=== PATIENT | female | born 1990 | race Caucasian/White ===

== ENCOUNTER 2021-06-08 10:03 | Emergency (ER) | payer OTHER, SELFPAY ==
--- NOTE | 2021-06-08 10:15 | ED.ALLEREA ---
HPI - Allergic Reaction General Chief complaint: Allergic Reaction Stated complaint: ALLERGIC REACTION TO HAIR DYE Time Seen by Provider: 06/08/21 10:10 Source: patient and EMS Mode of arrival: EMS Limitations: no limitations History of Present Illness HPI narrative: 30-year-old female presenting to the ED via EMS after she was seen at an urgent care prior to arrival and given 25 mg of Benadryl and IM epi to the right thigh due to allergic reaction with facial swelling prior to arrival from hair dye that the patient use last night. She reports that she has use hair dye in the past although has never had a reaction although this hair dye was a different brand. She denies any dizziness, headaches, neck pain/stiffness, trouble swallowing or breathing, chest pain or shortness of breath, nausea/vomiting or abdominal pain or any other symptoms complaints or concerns at this time. MD complaint: allergic reaction and facial swelling Onset (ago): day(s) (Since last night) Exposure: other (Hair dye) Symptoms: itching and facial swelling Severity: severe Treatment prior to arrival: benadryl (25 mg) and epinephrine Previous Allergic Reaction History: none Related Data Previous Rx's Medication Instructions Recorded diphenhydramine HCl 25 mg tablet 50 mg PO Q6-8H PRN #14 tab 06/08/21 (Benadryl Allergy) epinephrine 0.3 mg/0.3 mL 0.3 mg (0.3 mL) IM Q20M PRN #2 ea 06/08/21 injection, auto-injector (EpiPen) famotidine 20 mg tablet (Pepcid) 20 mg PO BID #14 tab 06/08/21 prednisone 20 mg tablet 40 mg PO DAILY 5 Days #10 tab 06/08/21 Allergies Allergy/AdvReac Type Severity Reaction Status Date / Time hair dye Allergy Facial Uncoded 06/08/21 10:29 Swelling Review of Systems Review of Systems: Constitutional : No Fever, No Chills , no body aches, no recent illness Head/Face: + facial swelling, + facial redness ENT/Mouth : No oral/throat swelling, No Hoarseness, No Swallowing Difficulty Eyes: No Eye Pain, No Swelling, No Redness Cardiovascular : No Chest Pain, No SOB, No palpitations Respiratory : No Cough, No Sputum, No Wheezing, No Smoke Exposure, No Dyspnea Gastrointestinal : No Nausea, No Vomiting, No Diarrhea, No abdominal Pain Genitourinary : No Dysuria, No Urinary Frequency, No Hematuria Musculoskeletal : No joint pain, No Myalgias, No Joint Swelling Skin : No Skin Lesions, positive rash Neuro : No Weakness, No Numbness, No Headache, No dizziness, No tingling Psych : No Anxiety/Panic, No Depression Heme/Lymph: No Bruising, No Lymphadenopathy Endocrine : No Polyuria, No Polydipsia Denies changes in lotions or detergents. Denies new medications or any changes in medications. Denies drainage from rash. Denies any recent sick contacts or recent travel. She use new hair dye Yes all other systems are reviewed and are negative [facility] Past Medical History Attestation statement: The following information was validated with the patient. Social History Social History Patient Tobacco Use Status: Never used Tobacco Use of substances other than those prescribed or required for medical reasons: No Advance Directives: No Advance Directives Information Provided: No Physical Exam Vital Signs: Vital Signs: Last Vital Signs Temp 98.6 F 06/08/21 10:26 Pulse 84 06/08/21 10:26 Resp 18 06/08/21 10:26 BP 116/66 06/08/21 10:26 Pulse Ox 99 06/08/21 10:26 BMI result Body Mass Index 28.3 vital signs have been reviewed as normal and appeared to be correct. Blood pressure normal. Heart rate normal. Respiration rate normal. Temperature normal. Oxygen saturation normal. Appearance: Alert. Oriented X3. No acute distress. Head: Normal external exam. Normocephalic. Eyes: PERRLA. EOMI. Conjunctiva and sclera normal. Eyelids normal. Patient with swelling to bilateral periorbital aspect ENT: Pharynx normal. Uvula midline. Moist mucous membranes. No trismus noted. No drooling noted. No muffled voice noted. No angioedema noted to lips or tongue. Neck: Normal inspection. Neck supple. FROM. No adenopathy. No meningeal signs. CVS: Normal heart rate and rhythm. Heart sound normal. No murmurs noted. Pulses normal throughout. Respiratory: No respiratory distress. Painless inspiration. Breath sounds normal. No wheezes/rales/rhonchi noted. Chest nontender. No accessory muscle usage noted or decreased air movement noted. Abdomen: Soft and nontender. Nondistended. No guarding. No rigidity. Bowel sounds normal in all 4 quadrants. No distention noted. No organomegaly noted. No visible injury noted. Back: Full range of motion noted. Skin: Skin warm and dry. Normal skin color. Normal skin turgor. No rashes/lesions/lacerations noted. Extremities: Extremities exhibit normal range of motion. Extremities nontender. Neuro: Oriented X 3. No motor deficit. No sensory deficit. Reflexes normal. Normal steady gait. Course Course Course Narrative: IMP/Plan: Allergic rxn. Not anaphylaxis. Not sepsis/ infectious etiology. Patient well appearing in no acute distress, breathing easily without throat symptoms. Speaking full sentences, and handling secretions without difficulty. There is no obvious threat to airway. Lungs are CTA in all otoole. Swelling to bilateral periorbital/forehead otherwise no angioedema to lips or tongue. Uvula is midline. No drooling/Roro/stridor. Patient tolerating secretions well. No signs of airway compromise, anaphylaxis or anaphylactic shock. Not c/w SSSS/ TEN/ Eryth multiforme/ Stewart Johnsons. Given HPI and PE - Will watch and observe for 4 hours due to patient given Epi will also give 125 mg of Solu-Medrol and another 25 mg of IV Benadryl. If patient symptoms improved - will d/c with return precautions. Patient understands and agrees with plan MDM - Allergic Reaction Medical Records Attestation: I reviewed the patient's medical records. Critical Care Time Critical Care Time Critical Care Time: Yes Total Critical Care Time: 60 Attestation: I personally attest to this time spent taking care of the patient Discharge Plan Discharge Clinical Impression: Allergic reaction Patient Disposition: Home, Self-Care Instructions: General Allergic Reaction (ED), Allergy Testing (ED) Prescriptions: New diphenhydramine HCl [Benadryl Allergy] 25 mg tablet 50 mg PO Q6-8H PRN (Reason: allergic reaction) Qty: 14 RF: 0 famotidine [Pepcid] 20 mg tablet 20 mg PO BID Qty: 14 RF: 0 prednisone 20 mg tablet 40 mg PO DAILY 5 Days Qty: 10 RF: 0 epinephrine [EpiPen] 0.3 mg/0.3 mL auto-injector 0.3 mg IM Q20M PRN (Reason: anaphylaxis) Qty: 2 RF: 0 Referrals: ED Physician,Generic [Emergency Provider] - 2 days (your pcp) Stand Alone Forms: Work/School Release Print Language: Wallisian
[2021-06-08 10:26] VITALS: BP 100/70; BP 116/66; PULSE 84; PULSE 94; RESP 18; TEMP 37; O2SAT 100; O2SAT 99; BMI 28.3
[2021-06-08] MEDS: 0.9 % Sodium Chloride 1,000 ML 999 ML IVCONT (11:04)
[2021-06-08] MEDS: Famotidine/PF 20 MG/2 ML VIAL IVPUSH (11:05)
[2021-06-08] MEDS: methylPREDNISolone Sod Succ 125 MG/2 ML VIAL IVPUSH (11:05)
[2021-06-08] MEDS: diphenhydrAMINE HCL 50 MG/ML VIAL 25 MG IVPUSH (11:05)
--- NOTE | 2021-06-08 11:07 | PC.NURSE ---
IV start to right A, medicated as charted. No diff breathing or angioedema. Breathing equal and unlabored. Fluids infusing. LS clear
--- NOTE | 2021-06-08 13:13 | PC.NURSE ---
Facial swelling improving
== END 2021-06-08 13:59 | disposition home or self-care (01) ==
PROVIDERS: Emergency Provider Emergency Medicine
DX: T78.49XA Other allergy, initial encounter (principal); X58.XXXA Exposure to other specified factors, initial encounter
CPT/HCPCS: 96361; 96374; 96375; 99284; 99291; J1200; J2930

== ENCOUNTER 2022-01-09 12:01 | Outpatient (REF) | payer MEDICAID, SELFPAY ==
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
== END 2022-01-09 12:02 | disposition home or self-care (01) ==
LOC: HO.XRAY 12:01
PROVIDERS: Absent Provider Registered Nurse; PCP Emergency Medicine; Visit Provider Emergency Medicine
DX: M54.50 Low back pain, unspecified (principal)
CPT/HCPCS: 72100

== ENCOUNTER 2023-06-24 08:54 | Emergency (ER) | payer MEDICAID, SELFPAY ==
[2023-06-24 09:03] VITALS: BP 119/67; PULSE 84; RESP 18; TEMP 36.8; O2SAT 98; BMI 34.9
--- NOTE | 2023-06-24 09:36 | ED_ITS ---
HPI - General Adult General Chief complaint: General Medical Stated complaint: Chest pain Time Seen by Provider: 06/24/23 09:28 Source: patient Mode of arrival: ambulatory Limitations: no limitations History of Present Illness HPI narrative: 32 year old female with no significant pmhx presents to the ED today for evaluation of left breast pain x2 days. Pain has been intermittent, now occurring more frequently. Describes it as a burning sensation. Pain is localized to the left areola/ nipple. States she was unable to sleep last night due to the pain. Has been taking motrin at home without relief of pain. Last dose was at 0800 this morning. LMP 4 mo ago. States her periods are typically irregular as she has an IUD. Denies chance of . She is not currently breast feeding. Has never breast fed in the past. Has never had a breast exam performed by a physician/ OBGYN. Has never had a mammogram. Denies fever, chills, discharge from the nipple, overlying skin changes to the breast, palpable masses, enlarged lymph nodes. No history of breast cancer or known fibrocystic breast changes. Related Data Previous Rx's Medication Instructions Recorded diphenhydramine HCl 25 mg tablet 50 mg (2 x 25 mg) PO Q6-8H PRN 06/08/21 (Benadryl Allergy) allergic reaction #14 tabs epinephrine 0.3 mg/0.3 mL 0.3 mg (0.3 mL) IM Q20M PRN 06/08/21 injection, auto-injector (EpiPen) anaphylaxis #2 ea famotidine 20 mg tablet (Pepcid) 20 mg PO BID rash #14 tabs 06/08/21 prednisone 20 mg tablet 40 mg (2 x 20 mg) PO DAILY rash 5 06/08/21 days #10 tabs ketorolac 10 mg tablet 10 mg PO Q8H 5 days #15 tabs 06/24/23 Allergies Allergy/AdvReac Type Severity Reaction Status Date / Time hair dye Allergy Facial Uncoded 06/08/21 10:29 Swelling Review of Systems Review of Systems: Constitutional: No fever, chills, fatigue, night sweats, weight changes ENT/Mouth: No ear pain, hearing loss, nasal congestion, sinus pain, rhinorrhea, sore throat Eyes: No eye pain, swelling, redness, vision changes, discharge Cardio: No chest pain, palpitations, TOM, orthopnea, peripheral edema Pulm: No SOB, cough, sputum, wheezing, dyspnea, hemoptysis GI: No nausea, vomiting, hematemesis, abdominal pain, diarrhea, constipation, he matochezia, melena : No irregular bleeding, dysuria, frequency, urgency, hesitancy, hematuria, flank pain, +left breast pain/ burning MSK: No back pain, neck pain, joint pain, myalgias Skin: No lesions, rashes Neuro: No weakness, numbness, paresthesias, LOC, dizziness, headache All other systems reviewed and are negative. [facility] Past Medical History Attestation statement: The following information was validated with the patient. Source: old records reviewed and nursing notes reviewed Social History Social History Patient Tobacco Use Status: Never used Tobacco Advance Directives: No Advance Directives Information Provided: No Physical Exam ED Vital Signs: Vital Signs - 24 hr 06/24/23 09:03 Temperature 98.2 F Pulse Rate 84 Respiratory Rate 18 Blood Pressure 119/67 Pulse Oximetry 98 Oxygen Delivery Method Room Air BMI result Body Mass Index 34.9 vital signs stable, afebrile Const General: cooperative, healthy appearing, comfortable, no acute distress, alert and awake Orientation/consciousness: patient oriented x3 Limitations: no limitations HENMT Head: Yes normal to inspection Eyes General: appearance normal, both eyes and all related structures Neck Neck: Yes normal visual inspection and Yes no lymphadenopathy Chest Other: + bilateral breasts without overlying skin changes or visible masses. No LAD noted to bilateral axilla. No palpable masses or nodules. No palpable warmth or fluctuance. Mildly tender to palpation of the left areola. No expressible discharge from the nipple. Chest palpation & inspection: normal inspection of the chest Breast/axilla inspection: normal inspection of the breasts Breast/axilla palpation: normal palpation of the breasts Resp Effort & Inspection: normal respiratory effort Auscultation: clear to auscultation bilaterally Cardio Rate: regular rate Rhythm: regular rhythm Peripheral pulses: radial pulses present GI Inspection: Yes normal to inspection Palpation (GI): nontender Skin General skin exam: no rashes or lesions noted Neuro General: patient oriented x3, gait normal and moves all extremities Extrem General: Yes normal to inspection Course Course Course Narrative: 1141-- Urine negative > low suspicion for . On re-evaluation, patient reports improvement in pain with toradol. Discussed imaging/ treatment with patient. I do not feel as thought imaging/ ultrasound of the breast is warranted at this time as patient does not have fever, overlying skin changes, palpable mass, or discharge from the nipple. There is no concern for mastitis vs breast abscess. Used shared decision making with patient to determine disposition. Patient will be discharged home with toradol. Advised patient to apply warm compresses to breast. Will provide patient with referral to OBGYN for her to establish care. Patient has remained stable throughout ED visit today. Discussed strict return precautions. All questions answered at this time. P atient is agreeable with disposition and stable for discharge. Medications Administered Discontinued Medications Generic Name Dose Route Start Last Admin Trade Name Freq PRN Reason Stop Dose Admin Ketorolac Tromethamine 30 mg 06/24/23 10:15 06/24/23 11:09 Ketorolac Tromethamine 30 Mg/Ml Vial IM 06/24/23 10:16 30 mg ONCE ONE Administration Medical Decision Making Medical Decision Making [facility] Narrative: 32 year old female with no significant pmhx presents to the ED today for evaluation of left breast pain x2 days. Vital signs stable. Afebrile. Patient was nontoxic-appearing and in no acute distress. On exam, bilateral breasts without overlying skin changes or visible masses. No LAD noted to bilateral axilla. No palpable masses or nodules. No palpable warmth or fluctuance. Mildly tender to palpation of the left areola. No expressible discharge from the nipple. Clinical concern for , fibrocystic breast changes, menses, premenstrual syndrome. Unlikely breast abscess, mastitis, pagets disease of the breast, cellulitis, prolactinoma, breast cancer. Plan for pain control and re- evaluation. Differential Diagnosis Differential Diagnoses: The differential diagnosis associated with the presentation includes as above Admission/Observation not indicated Lab Data as above. Labs: Lab Results 06/24/23 Range/Units 10:23 Urine Test NEGATIVE (NEGATIVE) External Record Review External record reviewed: Inpatient record Tests considered The following testing was considered but not selected: I considered obtaining ultrasound of left breast however no palpable mass/fluctuance, overlying skin changes or nipple discharge. No concern for breast abscess. Prescription Management I considered prescription management with: Pain Medication Social Determinants Patient?s care significantly limited by Social Determinants of Health including: Other Social Determinant of Health Critical Care Time Critical Care Time Critical Care Time: No Discharge Plan Discharge Clinical Impression: Breast pain, left Patient Disposition: Home, Self-Care Instructions: Fibrocystic Breast Changes (ED) Additional Instructions: Toradol is an anti-inflammatory that has been sent to your pharmacy. You tolerated a dose of this in the emergency department today. Do not take this on an empty stomach. Do not take this with other NSAIDs such as ibuprofen as this may increase risk of GI bleeding. Please take this as needed for pain/discomfort. You may also take Tylenol at home as needed. Apply warm compresses to the breast to help with discomfort. You were also provided with a referral to a [facility]. You may call them to make an appointment. They will not call you. Please return to the emergency department if symptoms persist or worsen, you develop fever, discharge from the nipple or if you feel a mass within the breast. The case of an emergency call 911. Prescriptions: New ketorolac 10 mg tablet 10 mg PO Q8H 5 Days Qty: 15 0RF No Action diphenhydramine HCl [Benadryl Allergy] 25 mg tablet 50 mg PO Q6-8H PRN (Reason: allergic reaction) Qty: 14 0RF famotidine [Pepcid] 20 mg tablet 20 mg PO BID Qty: 14 0RF prednisone 20 mg tablet 40 mg PO DAILY 5 Days Qty: 10 0RF epinephrine [EpiPen] 0.3 mg/0.3 mL auto-injector 0.3 mg IM Q20M PRN (Reason: anaphylaxis) Qty: 2 0RF Rx Instructions: do not exceed 3 doses per episode Referrals: [facility] [place] [facility] [Provider Group] Discharge Date/Time: 06/24/23 11:47
[2023-06-24 10:35] LABS: UPreg QC Valid YES; Urine Pregnancy NEGATIVE (NEGATIVE)
[2023-06-24] MEDS: Ketorolac Tromethamine 30 MG/ML VIAL IM (11:09)
== END 2023-06-24 11:47 | disposition home or self-care (01) ==
PROVIDERS: Physician Assistant Medical; Emergency Provider Student in an Organized Health Care Education/Training Program
DX: N64.4 Mastodynia (principal)
CPT/HCPCS: 81025; 96372; 99283; 99284; J1885

== ENCOUNTER 2024-01-21 09:39 | Outpatient (REF) | payer MEDICAID, SELFPAY ==
[2024-01-21 11:15] LABS: MANUAL DIFF FLAG NO
[2024-01-21 11:19] LABS: Basophils Percent Auto 0.5 % (0-2); Eosinophils Absolute Auto 0.1 X10*3/uL (0.0-0.4); Eosinophils Percent Auto 1.1 % (0-4); Hematocrit 40.3 % (37.0-47.0); Hemoglobin 13.7 g/dl (12.0-16.0); Imm Gran Abs Auto 0.02 X10*3/uL (0.00-0.03); Imm Gran Pct Auto 0.3 % (0.0-0.4); Lymphocytes Absolute Auto 2.6 X10*3/uL (1.2-4.9); Lymphocytes Percent Auto 39.4 % (20-40); Mean Corpuscular Hemoglobin 30.5 pg (27.0-33.0); Mean Corpuscular Volume 89.8 fL (80.0-98.0); Mean Platelet Volume 11.2 fL (9.4-12.3); Monocytes Absolute Auto 0.5 X10*3/uL (0.1-1.2); Neutrophils Absolute Auto 3.4 x10*3/uL (2.0-8.3); Neutrophils Percent Auto 51.7 % (45-73); Platelet Count 253 X10*3/uL (160-400); Red Blood Count 4.49 X10*6/uL (4.20-5.50); Red Cell Distribution Width 12.5 % (11.0-16.0); White Blood Count 6.5 X10*3/uL (4.8-10.8)
[2024-01-21 11:46] LABS: Alanine Aminotransferase 19 U/L (0-31); Albumin Level 4.5 g/dL (3.5-5.0); Alkaline Phosphatase 61 U/L (39-117); Anion Gap 12 (12-20); Aspartate Amino Transferase 17 U/L (5-31); Bilirubin Total 0.3 mg/dL (0.0-1.0); Blood Urea Nitrogen 10 mg/dL (9-16); Calcium 9.3 mg/dL (8.4-10.2); Carbon Dioxide 22 mmol/L (22-29); Chloride 107 mmol/L (96-108); Cholesterol 160 mg/dL (<200); Estimated Glomerular Filt Rate > 60; Glucose Random 95 mg/dL (60-115); HDL Cholesterol 37 mg/dL (>40); LDL Cholesterol Calculated 103 mg/dL (<100); Potassium 4.1 mmol/L (3.3-5.1); Sodium 137 mmol/L (135-145); Total Protein 7.5 g/dL (6.5-8.0); Triglycerides 101 mg/dL (<150)
[2024-01-21 12:04] LABS: TSH reflex Free T4 1.04 uIU/mL (0.32-4.0)
[2024-01-22 12:02] LABS: Mumps Virus IgG Antibody >300.00 AU/mL; Rubella IgG Antibody 1.99 Index; Rubeola IgG (Measles) >300.00 AU/mL
[2024-01-23 22:38] LABS: TS Negative Control Passed; TS Panel A 0; TS Panel B 0; TS Positive Control Passed; TSpotTB Negative (Negative)
== END 2024-01-21 09:40 | disposition home or self-care (01) ==
LOC: HO.HHCL 09:39
PROVIDERS: Visit Provider Internal Medicine
DX: Z01.84 Encounter for antibody response examination (principal); E66.9 Obesity, unspecified; Z11.1 Encounter for screening for respiratory tuberculosis
CPT/HCPCS: 36415; 80053; 80061; 84443; 85025; 86481; 86735; 86762; 86765; 86787

== ENCOUNTER 2024-01-30 06:23 | Emergency (ER) | payer MEDICAID, SELFPAY ==
--- NOTE | 2024-01-30 06:36 | ED_ITS ---
HPI - General Adult General Chief complaint: Headache Stated complaint: headache Time Seen by Provider: 01/30/24 06:32 Source: patient Mode of arrival: ambulatory Limitations: no limitations History of Present Illness ED Provider: marcio LONG narrative: Patient is a 33-year-old female with history of migraines presenting to the emergency department with complaint of headache since yesterday. States that she is currently out of her sumatriptan which usually works well for treating her migraines. She took OTC Tylenol with little relief. Mild photophobia. Denies nausea or vomiting. Denies any fever, body aches, URI symptoms. Denies any dizziness or lightheadedness. Denies any blurred vision, double vision or changes in vision. complaint: Headache Onset (ago): day(s) Location: head Radiation: non-radiation Severity: severe Quality: aching Pain Consistency: constant Relieving factors: none Treatments prior to arrival: other Related Data Previous Rx's ?Medication ?Instructions ?Recorded diphenhydramine HCl 25 mg tablet 50 mg (2 x 25 mg) PO Q6-8H PRN 06/08/21 (Benadryl Allergy) allergic reaction #14 tabs epinephrine 0.3 mg/0.3 mL 0.3 mg (0.3 mL) IM Q20M PRN 06/08/21 injection, auto-injector (EpiPen) anaphylaxis #2 ea famotidine 20 mg tablet (Pepcid) 20 mg PO BID rash #14 tabs 06/08/21 prednisone 20 mg tablet 40 mg (2 x 20 mg) PO DAILY rash 5 06/08/21 days #10 tabs ketorolac 10 mg tablet 10 mg PO Q8H 5 days #15 tabs 06/24/23 sumatriptan succinate 50 mg tablet See Rx Instructions PO .COMPLEX #8 01/30/24 tabs Allergies Allergy/AdvReac Type Severity Reaction Status Date / Time hair dye Allergy Facial Uncoded 01/30/24 06:41 Swelling Review of Systems Review of Systems: As per HPI. Yes all other systems are reviewed and are negative Constitutional: Constitutional: Reports as per HPI [facility] Social History Social History Patient Tobacco Use Status: Never used Tobacco Advance Directives: No Advance Directives Information Provided: Yes Do you have a plan to hurt others: No Plan Physical Exam ED Vital Signs: Vital Signs - 24 hr 01/30/24 06:38 Temperature 97.3 F Pulse Rate 76 Respiratory Rate 16 Blood Pressure 105/61 Pulse Oximetry 98 Oxygen Delivery Method Room Air BMI result Body Mass Index 34.0 Vital signs have been reviewed and appear to be correct. Blood pressure normal. Heart rate normal. Respiratory rate normal. Temperature normal. Oxygen saturation normal. Const General: cooperative, healthy appearing and no acute distress Orientation/consciousness: oriented to person, oriented to place, oriented to time and patient oriented x3 Limitations: no limitations HENMT Head: Yes normocephalic and Yes atraumatic Ears: external ears normal General nose exam: Normal external nose present Face and sinus: Yes face symmetric Mouth: oropharynx normal and moist mucous membranes Throat: Yes uvula midline Eyes Pupils: Equal, round and reactive pupils present Neck Neck: Yes normal visual inspection, Yes no meningeal signs and Yes supple Resp Effort & Inspection: normal respiratory effort and able to speak in complete sentences Auscultation: clear to auscultation bilaterally Cardio Rate: regular rate Rhythm: regular rhythm Heart sounds: S1 normal heart sound present and S2 normal heart sound present GI Palpation (GI): Soft to palpation and nontender Auscultation: normoactive bowel sounds General: Yes no CVA tenderness Back/Spine/Pelvis Back: no CVA tenderness Skin General skin exam: elasticity normal and turgor normal Neuro General: oriented to person, oriented to place, oriented to time, patient oriented x3, gait normal, tone normal, moves all extremities, Normal light touch and pain sensation, no meningeal signs, no focal motor deficits, CN's II-XI intact bilaterally and deep tendon reflexes 2+ bilaterally Cranial nerves: Yes Equal, round and reactive pupils present Cognition (Neuro): normal cognition Motor exam (neuro): 5/5 motor strength present throughout, Normal motor muscle tone present throughout and Motor abnormalities not present Extrem General: Yes full ROM, Yes no pedal edema and Yes no calf tenderness Psych Mental Status: mental status grossly normal Affect: normal affect Thought process: Normal thought process present Medications Administered Discontinued Medications Generic Name Dose Route Start Last Admin Trade Name Freq PRN Reason Stop Dose Admin Sumatriptan Succinate 50 mg 01/30/24 06:43 01/30/24 07:48 Sumatriptan Succinate 50 Mg Tablet PO 01/30/24 06:44 50 mg ONCE ONE Administration Medical Decision Making Medical Decision Making [facility] Narrative: Patient is a 33-year-old female with history of migraines presenting to the emergency department with complaint of headache since yesterday. On exam patient is awake, A+Ox3, VS WNL, afebrile, normal neurological exam without focal deficits, physical exam findings as above. Given reported symptoms and physical exam findings, initial differential includes tension headache, migraine. No red flag findings concerning for ICH/SAH, acute glaucoma, carotid artery dissection, CO poisoning, encephalitis, meningitis, preeclampsia, pseudotumor, temporal arteritis/giant cell arteritis. Patient medicated with her normal dose of sumatriptan and reports full resolution of headache. Will send short prescription to pharmacy until patient can follow up with PCP. Return precautions discussed. Patient verbalized understanding of and agreement with plan. Differential Diagnosis Differential Diagnoses: The differential diagnosis associated with the presentation includes As per [facility] External Record Review External record reviewed: Inpatient record, Office record and Outpatient record Prescription Management I considered prescription management with: Pain Medication Discharge Plan Discharge Clinical Impression: Migraine Patient Disposition: Home, Self-Care Instructions: Migraine Headache (ED) Additional Instructions: You have been evaluated in the emergency department today for headache. Your evaluation did not show evidence of medical conditions requiring emergent intervention at this time, and your pain improved with medication in the ED. You are being given a short prescription of sumatriptan until you can follow-up with your primary care provider. We recommend you take 600 mg ibuprofen every 6 hours or Tylenol 650 mg every 6 hours as needed for pain. If needed, you can alternate these medications so that you take 1 medication every 3 hours. For instance, at noon take ibuprofen, then at 3:00 p.m. take Tylenol, then at 6:00 p.m. take ibuprofen. Please follow-up with your primary care provider within 2 days. Return to the emergency department if you experience worsening or uncontrolled pain, vision changes, recurrent vomiting, difficulty with normal activities, abnormal behavior, difficulty walking, numbness, weakness, or any other concerning symptoms. Prescriptions: New sumatriptan succinate 50 mg tablet See Rx Instructions .ROUTE .COMPLEX Qty: 8 0RF Rx Instructions: take 1 tab at onset of headache; if no relief may repeat 1 tab after at least 2 hrs; max = 4 tabs/24 hr No Action diphenhydramine HCl [Benadryl Allergy] 25 mg tablet 50 mg PO Q6-8H PRN (Reason: allergic reaction) Qty: 14 0RF famotidine [Pepcid] 20 mg tablet 20 mg PO BID Qty: 14 0RF prednisone 20 mg tablet 40 mg PO DAILY 5 Days Qty: 10 0RF epinephrine [EpiPen] 0.3 mg/0.3 mL auto-injector 0.3 mg IM Q20M PRN (Reason: anaphylaxis) Qty: 2 0RF Rx Instructions: do not exceed 3 doses per episode ketorolac 10 mg tablet 10 mg PO Q8H 5 Days Qty: 15 0RF Stand Alone Forms: Work/School Release Print Language: Occitan
[2024-01-30 06:38] VITALS: BP 105/61; PULSE 76; RESP 16; TEMP 36.3; O2SAT 98; BMI 34.0
[2024-01-30] MEDS: SUMAtriptan succinate 50 MG TABLET PO (07:48)
[2024-01-30 08:53] VITALS: BP 115/72; PULSE 63; RESP 18; TEMP 36.4; O2SAT 100
== END 2024-01-30 08:54 | disposition home or self-care (01) ==
PROVIDERS: Emergency Provider Emergency Medicine; PCP Internal Medicine Geriatric Medicine
DX: G43.909 Migraine, unspecified, not intractable, without status migrainosus (principal)
CPT/HCPCS: 99283

== ENCOUNTER 2024-07-03 13:10 | Outpatient (REF) | payer MEDICAID, SELFPAY | END 2024-07-03 13:11 | disposition home or self-care (01) | LOC: HO.HHCLNP 13:10 | PROVIDERS: Visit Provider Family Medicine | DX: M54.50 Low back pain, unspecified (principal) | CPT/HCPCS: 87086 ==

== ENCOUNTER 2025-01-21 10:23 | Outpatient (REF) | payer MEDICAID, SELFPAY ==
--- OUTSIDE RECORDS SUMMARY | 2025-01-21 10:00 | XMS_ITS | Encounter Summary ---
Author Organization [employer] Address [address] [place] [address] 7 [place] [address] Care Team Providers Care Truck Mechanic Name Role Phone NameKirill MD Primary Care Provider [phone] Reason for Referral * Consultation (Routine) - Authorized Specialty Diagnoses / Procedures Referred By Paulo long Referred To Contact Midwifery Diagnoses Health care maintenance NameKirill MD [address] [place] [phone] Phone: tel: fax: Sharon Sanchez CNM [address] [place] [address] Phone: tel: fax: Referral ID Status Reason Start Date Expiration Date Visits Requested Visits Authorized [id number] Authorized Consult and Treat 01/21/2025 01/21/2026 1 1 Reason for Visit * Reason Comments Annual Exam Encounter Details Date Type Department Care Team (Late st Contact Info) Description 01/21/2025 10:00 AM EDT Office Visit [facility] [address] [place] [address] [phone] Kirill Sharpe MD [address] [place], [place] [phone] PE (physical exam), routine (Primary Dx); Screening for diabetes mellitus; Screening for cholesterol level; Mild intermittent asthma without complication; Migraine without status migrainosus, not intractable, unspecified migraine type; Health care maintenance; IUD (intrauterine device) in place Social History Tobacco Use Types Packs/Day Years Used Date Smoking Tobacco: Never Smokeless Tobacco: Never Tobacco Cessation:Counseling Given: Not Answered Alcohol Use Standard Drinks/Week Comments Not Currently 0 (1 standard drink = 0.6 oz pur e alcohol) Depression Answer Date Recorded Patient Health Questionnaire-9 Score 1 01/21/2025 Patient Health Questionnaire-9 Score 1 01/21/2025 Last PHQ-9: Questionnaire Data Not on file 0 01/21/2025 Housing Stability Answer Date Recorded What is your housing situation today? I have evaristo lizarraga 01/13/[address] you li ve. Do you have problems with any of the following? None of the above 01/13/2025 Food Insecurity Answer Date Recorded Within the past 12 months, y ou worried that your food would run out before you got money to buy more: Never True 01/13/2025 Within the past 12 months,th e food you bought just didn't last and you didn't have enough money to get more: Never True Transportation Answer Date Recorded In the past 12 months, has l ack of transportation kept you from medical appts, meetings, work or from getting things needed for daily living? No 01/13/2025 Utilities Answer Date Recorded In the past 12 months, has t he electric, gas, oil or water company threatened to shut off services in your home? No 01/13/2025 Depression Answer Date Recorded Patient Health Questionnaire-2 Score 0 01/21/2025 Internet Access Answer Date Recorded Internet Access Q1 Yes 01/13/2025 Internet Access Q2 Not on file 01/13/2025 Comments No Sex and Gender Information Value Date Recorded Sex Assigned at Female 05/01/2022 10:39 AM EDT Legal Sex Female 10:39 AM EDT Gender Identity Female 05/01/2022 10:39 AM EDT Sexual Orientation Straight 05/01/2022 10 :39 AM EDT Occupation Industry Job Start Date Job End Date [employer] Not on file Not on file Not on fi le documented as of this encounter Last Filed Vital Signs Vital Sign Reading Time Taken Comments Blood Pressure 110/74 01/21/2025 9:57 AM EDT Pulse 77 01/21/2025 9:57 AM EDT Temperature 36.3 C (97.4 F) 01/21/2025 9:57 AM EDT Respiratory Rate 21 01/21/2025 9:57 AM EDT Oxygen Saturation 98% 01/21/2025 9:57 AM EDT Inhaled Oxygen Concentration - - Weight 92.7 kg (204 lb 6.4 oz) 01/21/2025 9:57 A M EDT Height 160 cm (5' 3 ) 01/21/2025 9:57 AM EDT Body Mass Index 36.21 01/21/2025 9:57 AM EDT documented in this encounter Functional Status * Over the past 2 weeks, how often have you been bothered by any of the following problems? Question Answer Date of Assessment Author Patient Health Questionnaire-2 Score 0 01/21/2025 10:04 AM EDT Esau Carrion MA * Little interest or pleasure in doing things Answer Date of Assessment Author Not at all 01/21/2025 10:04 AM Lisa Prabhakar MA * Feeling down, depressed, or hopeless Answer Date of Assessment Author Not at all 01/21/2025 10:04 AM [facility] Lisa Carrion MA * Trouble falling or staying asleep, or sleeping too much Answer Date of Assessment Author Several days 01/21/2025 10:04 AM Lisa Prabhakar MA * Feeling tired or having little energy Answer Date of Assessment Author Not at all 01/21/2025 10:04 AM Lisa Prabhakar MA * Poor appetite or overeating Answer Date of Assessment Author Not at all 01/21/2025 10:04 AM Lisa Prabhakar MA * Feeling bad about yourself - or that you are a failure or have let yourself or your family down Answer Date of Assessment Author Not at all 01/21/2025 10:04 AM Lisa Prabhakar MA * Trouble concentrating on things, such as reading the newspaper or watching television Answer Date of Assessment Author Not at all 01/21/2025 10:04 AM Lisa Prabhakar MA * Moving or speaking so slowly that other people could have noticed? Or the opposite - being so fidgety or restless that you have been moving around a lot more than usual. Answer Date of Assessment Author Not at all 01/21/2025 10:04 AM Lisa Prabhakar MA * Thoughts that you would be better off or hurting yourself in some way Answer Date of Assessment Author Not at all 01/21/2025 10:04 AM Lisa Prabhakar MA * Patient Health Questionnaire-9 Score Answer Date of Assessment Author 1 01/21/2025 10:04 AM Lisa Prabhakar MA * How difficult have these problems made it for you to do your work, take care of things at home, or get along with other people? Answer Date of Assessment Author Not difficult at all 01/21/2025 10:04 AM Lisa Palafox MA * Over the last 2 weeks, how often have you been bothered by any of the following problems? Question Answer Date of Assessment Author Feeling nervous, anxious, or on edge 0 01/21/2025 10:04 AM Stepan Prabhakar MA Not being able to stop or control worrying 0 01/21/2025 10:04 AM Stepan Prabhakar MA Worrying too much about different things 0 01/21/2025 10:04 AM Stepan Prabhakar MA Trouble relaxing 0 01/21/2025 10:04 AM Lisa Prabhakar MA Being so restless that it is hard to sit still 0 01/21/2025 10:04 AM Stepan Prabhakar MA Becoming easily annoyed or irritable 0 01/21/2025 10:04 AM Stepan Prabhakar MA Feeling afraid as if something awful might happen 0 01/21/2025 10:04 AM Lisa Bloom MA ROM-7 Total Score 0 01/21/2025 10:04 AM Lisa Prabhakar MA documented as of this encounter Progress Notes * Kirill Sharpe MD - 01/21/2025 10:00 AM EDT Subjective Patient ID: Christa Rangel is a 34 y.o. female who presents for Annual Exam. Patient comes for PE. She is asymptomatic She is physically active Works at a fdc with patients with intellectual disability She is and monogamous for 10 years, she has IUD in place done at [facility] last year but wants to come here for [employer] She does not drink alcohol, smoke or use illicits She has very mild asthma and rarely uses albuterol She has rare migraines Review of Systems Constitutional: Negative for chills and fever. HENT: Negative for sore throat. Respiratory: Negative for cough, shortness of breath and wheezing. Cardiovascular: Negative for chest pain, palpitations and leg swelling. Gastrointestinal: Negative for abdominal pain. Visit Vitals BP 110/74 (BP Location: Left arm, Patient Position: Sitting, BP Cuff Size: Adult) Pulse 77 Temp 97.4 ??F (36.3 ??C) (Temporal) Resp 21 Ht 5' 3 (1.6 m) Wt 204 lb 6.4 oz (92.7 kg) LMP (Exact Date) SpO2 98% BMI 36.21 kg/m?? OB Status IUD Smoking Status Never BSA 2.03 m?? Objective Physical Exam Constitutional: Appearance: Normal appearance. Cardiovascular: Rate and Rhythm: Normal rate and regular rhythm. Heart sounds: No murmur heard. No gallop. Pulmonary: Effort: Pulmonary effort is normal. No respiratory distress. Breath sounds: Normal breath sounds. No wheezing. Musculoskeletal: Right lower leg: No edema. Left lower leg: No edema. Neurological: Mental Status: She is alert. Assessment/Plan Diagnoses and all orders for this visit: PE (physical exam), routine Comments: I recommended regular physical activity Avoid sweets and soda Check fasting blood work listed below Referral to [employer] Orders: - CBC auto differential; Future - Comprehensive Metabolic Panel; Future - Lipid Panel, Standard; Future Screening for diabetes mellitus - Comprehensive Metabolic Panel; Future - Hemoglobin A1c; Future Screening for cholesterol level - Lipid Panel, Standard; Future Mild intermittent asthma without complication Comments: Continue PRN Albuterol Migraine without status migrainosus, not intractable, unspecified migraine type Comments: PRN NSAIDs at onset of migraine Health care maintenance Comments: Referral to [employer] here. I will have my MA get her last pap smear from [facility] Orders: - Referral to Gynecology (Sharon); Future IUD (intrauterine device) in place Comments: Placed 2023 at [facility] Other orders - albuterol (Ventolin HFA) 108 (90 Base) MCG/ACT inhaler; INHALE 2 PUFFS EVERY 6 HOURS IF NEEDED FOR WHEEZING. documented in this encounter Plan of Treatment Scheduled Orders Name Type Priority Associated Diagnoses Orde r Schedule CBC auto differential Lab Routine PE (physical exam), routine Expected: 01/21/2025 (Approximate), Expires: 01/21/2026 Comprehensive Metabolic Panel Lab Routine PE (physical exam), routine Screening for diabetes mellitus Expected: 01/21/2025 (Approximate), Expires: 01/21/2026 Lipid Panel, Standard Lab Routine PE (physical exam), routine Screening for cholesterol level Expected: 01/21/2025 (Approximate), Expires: 01/21/2026 Hemoglobin A1c Lab Routine Screening for diabetes mellitus Expected: 01/21/2025 (Approximate), Expires: 01/21/2026 Scheduled Referrals Name Type Priority Associated Diagnoses Orde r Schedule Referral to Gynecology (Sharon) Outpatient Referral Routine Health care maintenance Expected: 01/21/2025 (Approximate), Expires: 01/21/2026 documented as of this encounter Visit Diagnoses Diagnosis PE (physical exam), routine- Primary Screening for diabetes mellitus Screening for cholesterol level Mild intermittent asthma without complication Migraine without status migrainosus, not intractable, unspecified migraine type Health care maintenance IUD (intrauterine device) in place Presence of intrauterine contraceptive device documented in this encounter Additional Health Concerns Assessment Noted Time PHQ-9 Depression Total Score: 1 01/22/20 25 10:04 AM EDT documented as of this encounter Care Teams Truck Mechanic Relationship Specialty Start Date End Date Name, MD Kirill [address] [place] [address] PCP - General Internal Medicine 10/19/22 documented as of this encounter
[2025-01-21 11:29] LABS: MANUAL DIFF FLAG NO
[2025-01-21 11:36] LABS: Hematocrit 38.5 % (37.0-47.0); Hemoglobin 13.0 g/dl (12.0-16.0); Imm Gran Abs Auto 0.01 X10*3/uL (0.00-0.03); Imm Gran Pct Auto 0.2 % (0.0-0.4); Lymphocytes Absolute Auto 2.7 X10*3/uL (1.2-4.9); Mean Corpuscular HGB Conc 33.8 g/dl (31.0-35.0); Mean Corpuscular Hemoglobin 30.1 pg (27.0-33.0); Mean Corpuscular Volume 89.1 fL (80.0-98.0); NRBC Abs Auto 0.000 X10*3/uL (0.0-0.012); NRBC Pct Auto 0.0 /100WBC (0.0-0.2); Platelet Count 250 X10*3/uL (160-400); Red Blood Count 4.32 X10*6/uL (4.20-5.50); White Blood Count 6.4 X10*3/uL (4.8-10.8)
[2025-01-21 11:41] LABS: Hemoglobin A1C 117.0195 umol/L; Total Hemoglobin (HGBA1C) 3392.9285 umol/L
[2025-01-21 11:46] LABS: Alanine Aminotransferase 28 U/L (0-31); Albumin Level 4.6 g/dL (3.5-5.0); Alkaline Phosphatase 60 U/L (39-117); Anion Gap 10 (12-20); Aspartate Amino Transferase 27 U/L (5-31); Blood Urea Nitrogen 8 mg/dL (9-16); Calcium 9.0 mg/dL (8.4-10.2); Carbon Dioxide 23 mmol/L (22-29); Chloride 109 mmol/L (96-108); Cholesterol 150 mg/dL (<200); Estimated Glomerular Filt Rate > 60; HDL Cholesterol 32 mg/dL (>40); Potassium 3.8 mmol/L (3.3-5.1); Sodium 138 mmol/L (135-145); Total Protein 7.3 g/dL (6.5-8.0); Triglycerides 70 mg/dL (<150)
== END 2025-01-21 10:24 | disposition home or self-care (01) ==
LOC: HO.HHCL 10:23
PROVIDERS: PCP Internal Medicine Geriatric Medicine; Visit Provider Internal Medicine Geriatric Medicine
DX: Z13.1 Encounter for screening for diabetes mellitus (principal); Z13.220 Encounter for screening for lipoid disorders; Z00.00 Encounter for general adult medical examination without abnormal findings
CPT/HCPCS: 36415; 80053; 80061; 83036; 85025

== ENCOUNTER 2025-05-27 16:05 | Outpatient (REF) | payer MEDICAID, SELFPAY ==
--- OUTSIDE RECORDS SUMMARY | 2014-01-20 10:52 | XMS_ITS | Continuity of Care Document ---
Author Organization [facility] Address [address] [place] [address] Phone Care Team Providers Care Cloth Printer Helper Name Role Phone Marquise Aragon OD, Joan Unavailable Unavai lable Medications Medication Instructions Dosage Effective Dates (start - stop) Status Comments Depo-Provera 150 mg/mL IM Susp inject 1 milliliter (150MG) by intramuscular route every 3 months 150 MG - Active Procedures Procedure Date FITTING OF SPECTACLES Spherocylindr 4.00d/12-2.00d Vision svcs frames purchases REFRACTION EYE EXAM, NEW PATIENT OFFICE/OUTPATIENT VISIT, EST URINALYSIS NONAUTO W/O SCOPE OFFICE/OUTPATIENT VISIT, EST URINALYSIS NONAUTO W/O SCOPE OFFICE/OUTPATIENT VISIT, EST URINALYSIS NONAUTO W/O SCOPE OFFICE/OUTPATIENT VISIT, EST OFFICE/OUTPATIENT VISIT, EST URINE TEST OFFICE/OUTPATIENT VISIT, EST Medrxyprogester acetate inj OFFICE/OUTPATIENT VISIT, EST Medrxyprogester acetate inj OFFICE/OUTPATIENT VISIT, EST OFFICE/OUTPATIENT VISIT, EST OFFICE/OUTPATIENT VISIT, EST OFFICE/OUTPATIENT VISIT, NEW No Charge Advance Directives Directive Yes / No Effective Date File Name No Information Encounters Encounter Description Practice Location Reason(s) For Visit Diagnoses Date Provider Providers Copied on Encounter [facility] , [address] [place] [address], [place], [place], [id number] , [place] tel: [phone] [facility] No Information 4 Marquise Franco. [address] [place] [address], [id number] [place], [address], [place]. tel: [phone] [facility] , [address] [place] [address], [id number] , [place] tel: [phone] [facility] Regular astigmatismFitti ng and adjustment of spectacles and contact l 4 Marquise Willsonyce. [address] [place] [address], [id number] [place], [address], [place]. tel: [phone] [facility] , [address] [place] [address], [id number] , [place] tel: [phone] [facility] blurry vision (chief complaint)f lashing lights (chief complaint) Other specified visual disturbancesOthe r specified visual disturbancesRegu lar astigmatismVitre ous membranes and strands 4 Marquise Willsonyce. [address] [place] [address], [id number] [place], [address], [place]. tel: [phone] [facility] , [address] [place] [address], [id number] , [place] tel: [phone] [facility] no complaints (chief complaint) Status post vaginal delivery 3 Debbie Huitron. [address] [place] [address], [id number] [address] [place] [address], [address], [place]. tel: [phone] OFFICE/OUTPA TIENT VISIT, EST [facility] , [address] [place] [address], [id number] , [place] tel: [phone] [facility] no complaints (chief complaint)s een at [facility] (chief complaint) Supervision of other normal 3 Elmo Hazel. [address], [id number] [place], [place], [place], [id number], [place]. tel:[phone] OFFICE/OUTPA TIENT VISIT, [facility] , [address], [place], [place], [id number] , [place] tel:[phone] [facility] ultrasound results (chief complaint) Supervision of other normal 2 Elmo Hazel. [address], [id number] [address], [place], [place], [id number], [place]. tel:[phone] OFFICE/OUTPA TIENT VISIT, [facility] , [address], [place], [place], [id number] , [place] tel:[phone] [facility] (chief complaint) Supervision of other normal 2 Elmo Hazel. [address], [id number] [address], [place], [place], [id number], [place]. tel:[phone] [facility] , [address] [place], [place] [address], [place], [place], [id number] , [place] tel:[phone] [facility] +UTI 03/06/12 (chief complaint) PregnancyUrinary tract infection, site not specifiedUTI in , antepartumHx of delivery, currently 2 Elmo Hazel. [address], [id number] [address], [place], [place], [id number], [place]. tel:[phone] OFFICE/OUTPA TIENT VISIT, [facility] , [facility], [place], [place], [id number] , [place] tel:[phone] [facility] (chief complaint) Screening examination for unspecified bacterial and spirochetal diseasesSupervis ion of other normal 2 Elmo Hazel. [address], [id number] [address], [place], [place], [id number], [place]. tel:[phone] OFFICE/OUTPA TIENT VISIT, [facility] , [address], [place], [place], [id number] , [place] tel:[phone] [facility] Depo Provera (chief complaint)p t ill referred to ped office (chief complaint)v omiting (chief complaint) VomitingEczema 2 Jenise Rothman. [address], [id number] [address], [place], [address], [place]. tel:[phone] [facility] , [address] [place] [address] Ave, [place], [place], [id number] , [place] tel:[phone] [facility] Contraceptive management 2 Jenise Cassidyyn. [address], [id number] [address], [place], [address], [place]. tel:[phone] OFFICE/OUTPA TIENT VISIT, [facility] , [address], [place], [place], [id number] , [place] tel: [phone] [facility] No Information 1 Elmo Hazel. [address], [id number] [address], [place], [place], [id number], [place]. tel:[phone] OFFICE/OUTPA TIENT VISIT, [facility] , [address], [place], [place], [id number] , [place] tel:[phone] [facility] No Information 1 Elmo Hazel. [address] [place] [address] Ave, [id number] [address], [place], [place], [id number], [place]. tel:[phone] OFFICE/OUTPA TIENT VISIT, [facility] , [address], [place], [place], [id number] , [place] tel:[phone] [facility] No Information 1 Debbie Huitron. [address] [facility], [id number] [address], [place], [address], [place]. tel:[phone] OFFICE/OUTPA TIENT VISIT, [facility] , [address] [place] [address], [place], [place], [id number] , [place] tel:[phone] [facility] No Information 1 Elmo Hazel. [address] [place] [address], [id number] [address], [place], [place], [id number], [place]. tel:[phone] OFFICE/OUTPA TIENT VISIT, [facility] , [address] [place] [address] [place], [id number] , [place] tel:[phone] [facility] No Information 1 [facility]. [address] [facility], [place], [address], [place]. tel:[phone] OFFICE/OUTPA TIENT VISIT, [facility] , [address] [place] [address], [place], [place], [id number] , [place] tel:[phone] [facility] No Information 1 [facility]. [address], [place], [address], [place]. tel:[phone] [facility] , [address] [place] [address], [place], [id number] , [place] tel:[phone] [facility] No Information 0 Elmo Hazel. [address], [id number] [address], [place], [place], [id number], [place]. tel:[phone] Family History Family Member Type Diagnosis Age At Onset No Information Payers Payer name Insurance type Covered libertarian ID Bertram becerra(ziggy Hardin [facility] Med SV [place] CI [id number] Social History Type Description Quantity Date Captured Comments Sex Female Smoking Status No Information Chief Complaint And Reason For Visit No Information Reason For Referral Reason For Referral No Information Plan Of Treatment Date Type Action Status Referral Ordered: OB US >/= 14 WKS, SNGL FETUS ordered Referral Ordered: Medrxyprogester acetate inj 150 mg Intramuscular ordered History Of Present Illness Encounter Date Complaint History Of Prese nt Illness No Information Functional Status Date Functional Assessmen t No Information Instructions Date Instruction Additional Infor shilpi Vitreous strands OU - Discussed signs and symptoms of PVD/floaters. Discussed signs and symptoms of retinal detachment. Related to Vitreous strands - Return in 1-2 years Related to Blurred vision Blurred vision OU Bl urred vision OU - New glasses Rx was given today. Related to Blurred vision Assessments Type Assessment Date No Information Patient Care Teams Name Effective Dates (start - stop) Status Members No Information
--- OUTSIDE RECORDS SUMMARY | 2025-05-27 09:20 | XMS_ITS | Encounter Summary ---
Author Organization [employer] Address [address] [facility] [address] [place] [address] Care Team Providers Care Paving Foreman Name Role Phone Name, Kirill GALLOWAY Primary Care Provider [phone] Reason for Visit * Reason Comments Sore Throat Headache Patient has a histor y of migraine, Also experiencing lower back pain Encounter Details Date Type Department Care Team ([facility] st Contact Info) Description 05/27/2025 9:20 AM EST Office Visit [facility] [address] [place] [phone] Brayden Damon MD [address] [place], [place] [phone] Influenza-like symptoms (Primary Dx); Pharyngitis, unspecified etiology; Viral illness; Low back pain without sciatica, unspecified back pain laterality, unspecified chronicity Social History Tobacco Use Types Packs/Day Years [...] Sign Reading Time Taken Comments Blood Pressure 120/80 05/27/2025 9:12 AM EST Pulse 74 05/27/2025 9:12 AM EST Temperature 37.2 C (99 F) 05/27/2025 9:12 AM EST Respiratory Rate 12 05/27/2025 9:12 AM EST Oxygen Saturation 96% 05/27/2025 9:12 AM EST Inhaled Oxygen Concentration - - Weight 92.5 kg (204 lb) 05/27/2025 9:12 AM EST Height 160 cm (5' 3 ) 05/27/2025 9:12 AM EST Body Mass Index 36.14 05/27/2025 9:12 AM EST documented in this encounter Progress Notes * Brayden Damon MD - 05/27/2025 9:20 AM EST Subjective Patient ID: Christa Rangel is a 34 y.o. female. HPI Christa had onset yesterday of sore throat, LBP, headaches, chills, nausea, runny nose. No v/d, SOB, or urinary symptoms. Taking p.o. well. Taking ibuprofen and acetaminophen. Lives with and 3 children. Daughter had sore throat, had + rapid strep test 1 week ago. LMP= irreg, had IUD. Works as developmental marketing services vice president. Never smoked. Patient Active Problem List Diagnosis Date Noted Skin rash 12/12/2022 History of cholecystectomy 10/19/2022 Migraine 06/11/2021 IUD (intrauterine device) in place 04/24/2023 The following portions of the chart were reviewed this encounter and updated as appropriate: Tobacco Allergies Meds Problems Med Hx Surg Hx Fam Hx Review of Systems Constitutional: Positive for chills. Negative for fever. HENT: Positive for sore throat. Respiratory: Negative for shortness of breath. Cardiovascular: Negative for chest pain. Gastrointestinal: Positive for nausea. Negative for abdominal pain, diarrhea and vomiting. Genitourinary: Negative for dysuria. Musculoskeletal: Positive for back pain. Skin: Negative for rash. Neurological: Positive for headaches. Objective Physical Exam Constitutional: Appearance: Normal appearance. HENT: Right Ear: Tympanic membrane, ear canal and external ear normal. Left Ear: Tympanic membrane, ear canal and external ear normal. Nose: Nose normal. Mouth/Throat: Mouth: Mucous membranes are moist. Pharynx: Oropharynx is clear. Uvula midline. Posterior oropharyngeal erythema present. Tonsils: No tonsillar exudate or tonsillar abscesses. Eyes: Conjunctiva/sclera: Conjunctivae normal. Pupils: Pupils are equal, round, and reactive to light. Cardiovascular: Rate and Rhythm: Normal rate and regular rhythm. Heart sounds: No murmur heard. Pulmonary: Effort: Pulmonary effort is normal. Breath sounds: Normal breath sounds. Musculoskeletal: General: Normal range of motion. Cervical back: No tenderness. Skin: Findings: No rash. Neurological: Mental Status: She is alert. Gait: Gait is intact. Psychiatric: Mood and Affect: Mood normal. Behavior: Behavior normal. Procedures Assessment/Plan Diagnoses and all orders for this visit: Influenza-like symptoms Negative rapid Covid and Influenza tests. Rapid Strep test negative. U/a: small blood and lue. Urine C&S pending. Prescribed ibuprofen. She has acetaminophen at home. Drink lots of liquids. rtc if not improving. Pharyngitis, unspecified etiology Because of history of child's recent positive rapid strep test, the patient's sore throat and chills, prescribed amoxicillin for possible strep pharyngitis. Use acetaminophen and ibuprofen as needed. Advised that her hormonal IUD may be ineffective while taking antibiotic Return to clinic if not improving - Influenza A (ID NOW Rapid Molecular) - Influenza B (ID NOW Rapid Molecular) - POCT Rapid COVID Ag - POCT ID NOW Rapid Strep A manually resulted - POCT urinalysis dipstick manually resulted (CPT 88200) - POCT , urine manually resulted - Culture, Urine, Routine; Future Other orders - amoxicillin (Amoxil) 500 MG capsule; Take 1 capsule (500 mg) by mouth every 12 (twelve) hours for10 days. - ibuprofen 400 MG tablet; Take 1 tablet (400 mg) by mouth every 6 (six) hours if needed for moderate pain or fever for up to 30 doses. documented in this encounter Plan of Treatment Upcoming Encounters Date Type Department Care Team (Late st Contact Info) Description 09/22/2025 10:00 AM EDT Office Visit [facility] [address] [place], [place] [phone] Mattie Flores, OD [address] [place] [address] Scheduled Orders Name Type Priority Associated Diagnoses Orde r Schedule Culture, Urine, Routine Microbiology Routine Low back pain without sciatica, unspecified back pain laterality, unspecified chronicity Expected: 05/27/2025 (Approximate), Expires: 05/27/2026 documented as of this encounter Procedures Procedure Name Priority Date/Time Associated Diagnosis Comments POCT INFLUENZA B (ID NOW RAPID MOLECULAR) Routine 05/27/2025 9:29 AM EST Viral illness POCT INFLUENZA A (ID NOW RAPID MOLECULAR) Routine 05/27/2025 9:29 AM EST Viral illness POC ALEXANDER ID NOW STREP A Routine 05/27/2025 9:29 AM EST Viral illness POCT RAPID COVID ANTIGEN Routine 05/27/2025 9:29 AM EST Viral illness POCT , URINE Routine 05/27/2025 9:29 AM EST Low back pain without sciatica, unspecified back pain laterality, unspecified chronicity POCT URINALYSIS DIPSTICK Routine 05/27/2025 9:29 AM EST Low back pain without sciatica, unspecified back pain laterality, unspecified chronicity documented in this encounter Results * POCT , urine manually resulted (05/27/2025 9:29 AM EST) Preg Test, Ur Negative Negative, Indeterminate, None Detected, Trace, 3+, Specimen unsatisfactory for evaluation, Weakly Positive, 1+, 2+ QC Media Lot # [id number] Lot# Expiration Date [id number] Urine 05/27/2025 9:29 AM EST us Brayden Damon MD POINT OF CARE TEST ENTER/EDIT OR DERABLES Final Result * (ABNORMAL) POCT urinalysis dipstick manually resulted (CPT 19213) (05/27/2025 9:29 AM EST) Color, UA Yellow Clarity, UA Clear Glucose, UA Negative Bilirubin, UA Negative Ketones, UA Negative Spec Grav, UA 1.025 Blood, UA Positive(A) Negative, None Detected Comment:small pH, UA 6.0 Protein, UA Negative Urobilinogen, UA 0.2 Leukocytes, UA Trace Negative, Rare, Trace, 1+ (17), 2+ (35), 3+ (70), Trace (15) Comment:small Nitrite, UA Negative Negative, None Detected QC Media Lot # [id number] Lot# Expiration Date 9302,026 Urine (Urine, Random) 05/27/2025 9:29 AM EST us Brayden Damon MD POINT OF CARE TEST ENTER/EDIT OR DERABLES Final Result * POCT ID NOW Rapid Strep A manually resulted (05/27/2025 9:29 AM EST) [facility] Rapid Strep A Screen Negative Negative, None Detected QC Media Lot # [id number] Lot# Expiration Date 464, Swab 05/27/2025 9:29 AM EST us Brayden Damon MD POINT OF CARE TEST ENTER/EDIT OR DERABLES Final Result * POCT Rapid COVID Ag (05/27/2025 9:29 AM EST) [facility] Rapid COVID Ag Negative QC Media Lot # [id number] Lot# Expiration Date [id number] Swab 05/27/2025 9:29 AM EST us Brayden Damon MD POINT OF CARE TEST ENTER/EDIT OR DERABLES Final Result * Influenza B (ID NOW Rapid Molecular) (05/27/2025 9:29 AM EST) [facility] Influenza B Negative Negative, Indeterminate [facility] QC Media Lot # [id number] [facility] Lot# Expiration Date [facility] Swab 05/27/2025 9:29 AM EST us Brayden Damon MD POINT OF CARE TEST ENTER/EDIT OR DERABLES Final Result Performing Organization Address [facility] Co de Phone Number [facility] [address] [place] [address] [phone] * Influenza A (ID NOW Rapid Molecular) (05/27/2025 9:29 AM EST) [facility] Influenza A Negative Negative, Indeterminate [facility] QC Media Lot # [id number] [facility] Lot# Expiration Date [facility] Swab 05/27/2025 9:29 AM EST us Brayden Damon MD POINT OF CARE TEST ENTER/EDIT OR DERABLES Final Result [facility] [address] [place] [address] [phone] documented in this encounter Visit Diagnoses Diagnosis Influenza-like symptoms- Primary Other general symptoms Pharyngitis, unspecified etiology Viral illness Unspecified viral infection, in conditions classified elsewhere and of unspecified site Low back pain without sciatica, unspecified back pain laterality, unspecified chronicity documented in this encounter Additional Health Concerns Assessment Noted Time PHQ-9 Depression Total Score: 1 01/22/20 25 10:04 AM EDT documented as of this encounter Care Teams Paving Foreman Relationship Specialty Start Date End Date Name, MD Kirill [address] [place] [address] PCP - General Internal Medicine 10/19/22 documented as of this encounter
--- OUTSIDE RECORDS SUMMARY | 2025-05-27 17:55 | XMS_ITS | Clinical Summary ---
Author Organization [email or web address] Address [address] [facility] [address] [place] [address] Care Team Providers Care Hotel Or Motel Manager Name Role Phone Name, Kirill GALLOWAY Primary Care Provider [phone] Allergies No known active allergies Medications diphenhydrAMINE (BENADryl) 25 MG tabletIndicatio ns:Skin rash Take 1 tablet (25 mg) by mouth every 8 (eight) hours if needed for itching. 30 tablet 1 01/31/2023 Active acetaminophen (Tylenol 8 Hour) 650 MG ER tabletIndicatio ns:Viral syndrome TAKE 1 TABLET BY MOUTH EVERY 8 HOURS NEEDED FOR MILD PAIN DO NOT CRUSH/SPLIT/C HEW 60 tablet 2 10/16/2023 Active albuterol (Ventolin HFA) 108 (90 Base) MCG/ACT inhaler INHALE 2 PUFFS EVERY 6 HOURS IF NEEDED FOR WHEEZING. 18 g 2 01/21/2025 Active amoxicillin (Amoxil) 500 MG capsule Take 1 capsule (500 mg) by mouth every 12 (twelve) hours for 10 days. 20 capsule 05/27/2025 06/06/20 25 Active ibuprofen 400 MG tablet Take 1 tablet (400 mg) by mouth every 6 (six) hours if needed for moderate pain or fever for up to 30 doses. 30 tablet 05/27/2025 Active Active Problems Problem Noted Date Diagnosed Date IUD (intrauterine device) in place 04/24/2023 Overview (04/24/2023): Placed 2022. [facility] Changer at [facility] Skin rash 12/12/2022 Assessment & Plan (12/12/2022 7:09 AM EDT): Pt w 3 d of skin rash, 1 wk ago cough now improving Unclear etiology of skin rash at this time, but possibilities could be allergic reactions to recent Sumatriptan Rx, however seems unlikely given last exposure was 2-3 wk ago, also infectious w recent respiratory sx COVID-19, flu rapid test today neg -Advised to hold Sumatriptan for now -Given extension of rash prescribed prednisone 40 mg every day for 5 d -Benadryl HS -Will check STI, CBC, CHEM -Referred today to tie bucker and verifying machine operator -F up w PCP on 01/03/2023 - can monitor rash then as well -Alarm signs and sx explained History of cholecystectomy 10/19/2022 Migraine 06/11/2021 Assessment & Plan (02/18/2024 12:53 PM EDT): Controlled with sumatriptan as needed, lifestyle modifications were discussed Resolved Problems Problem Noted Date Diagnosed Date Resolved Date Breast pain, left 07/10/2023 01/21/2025 Assessment & Plan (07/13/2023 9:35 AM EST): Ro duct dysplasia, 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 Needs imaging of the left breast, will order BL dx mammogram (per protocol) to focus on left + left breast US. FU with PCP in 3-4w or after imaging. Cyst of breast 07/24/2021 01/21/2025 Gallstone 07/24/2021 01/21/2025 Encounters Date Type Department Care Team Description 05/27/2025 9:20 AM EST Office Visit [facility] [address] [place] [phone] Brayden Damon MD Influenza-like symptoms (Primary Dx); Pharyngitis, unspecified etiology; Viral illness; Low back pain without sciatica, unspecified back pain laterality, unspecified chronicity 05/27/2025 Travel 05/13/2025 Travel from Last 3 Months Immunizations Immunization Administration Dates Next Due Influenza injectable quadrivalent preservative f ree 06/10/2021 Pfizer Covid-19 Vaccine 12+ 08/24/2021 Tdap 01/09/2024 Family History Medical History Relation Name Comments Stroke Mother Relation Name Status Comments Father Mother Alive Social History Tobacco Use Types Packs/Day Years [...] Not on file Not on fi le Last Filed Vital Signs Vital Sign Reading [...] Mass Index 36.14 05/27/2025 9:12 AM EST Plan of Treatment Upcoming Encounters Date Type Department Care Team (Late st Contact Info) Description 09/22/2025 10:00 AM EDT Office Visit [facility] [address] [place], [place] [phone] Mattie Flores, OD [address] [place], [place] [phone] Health Maintenance Due Date Last Done Comments Family Planning (PISQ) 11/19/2006 HPV Vaccines (1 - 3-dose series) 11/19/2006 Hepatitis B Vaccines (1 of 3 - 19+ 3-dose series) 11/19/2010 Pneumococcal Vaccine: Pediatrics (0 to 5 Years) and At-Risk Patients (6 to 49) Years (1 of 2 - PCV) 11/19/2010 Pap Smear 11/19/2012 Cervical Cancer Screening 11/19/2021 HPV/Cotest 11/19/2021 COVID-19 Vaccine ( - 2024-2 6 season) 2025 08/29/2021, 08/24/2021, 02/27/2021 Influenza Vaccine (#1) 2025 06/10/2021 Alcohol/Substance Use Screening 01/21/2026 01/21/2025 Depression Screening 01/21/2026 01/21/2025, 01/21/2025 Disability Screening 01/21/2026 01/21/2025 SDOH Screening 01/21/2026 01/21/2025 Tobacco Screening 05/27/2026 05/27/2025 DTaP/Tdap/Td Vaccines (2 - T d or Tdap) 01/08/2034 01/09/2024 Zoster Vaccines (1 of 2) 11/19/2041 RSV Patients and Patients Aged 60 years or older (1 - 1-dose 75+ series) 11/19/2066 HIV Screening Completed 12/13/2022 Hepatitis C Screening Completed 12/13/2022 HIB Vaccines Aged Out No longer eligi ble based on patient's age to complete this topic Hepatitis A Vaccines Aged Out No long er eligible based on patient's age to complete this topic IPV Vaccines Aged Out No longer eligi ble based on patient's age to complete this topic Meningococcal B Vaccine Aged Out No l onger eligible based on patient's age to complete this topic Meningococcal Vaccine Aged Out No delon del eligible based on patient's age to complete this topic RSV under 20 months Aged Out No longe r eligible based on patient's age to complete this topic Rotavirus Vaccines Aged Out No longer eligible based on patient's age to complete this topic Procedures Procedure Name Priority Date/Time Associated Diagnosis Comments POCT , URINE Routine 05/27/2025 9:29 AM EST Low back pain without sciatica, unspecified back pain laterality, unspecified chronicity POCT URINALYSIS DIPSTICK Routine 05/27/2025 9:29 AM EST Low back pain without sciatica, unspecified back pain laterality, unspecified chronicity POC ALEXANDER ID NOW STREP A Routine 05/27/2025 9:29 AM EST Viral illness POCT RAPID COVID ANTIGEN Routine 05/27/2025 9:29 AM EST Viral illness POCT INFLUENZA B (ID NOW RAPID MOLECULAR) Routine 05/27/2025 9:29 AM EST Viral illness POCT INFLUENZA A (ID NOW RAPID MOLECULAR) Routine 05/27/2025 9:29 AM EST Viral illness HEPATITIS C AB W/REFL TO HCV RNA, QN, PCR Routine 12/13/2022 9:14 AM EDT Skin rash HIV 1/2 ANTIGEN/ANTIBODY, FOURTH GENERATION W/RFL Routine 12/13/2022 9:14 AM EDT Skin rash from Last 3 Months or Most Recently Relevant to Health Maintenance Results * Influenza B (ID NOW Rapid Molecular) (05/27/2025 9:29 AM EST) Pathologist [facility] Influenza B Negative Negative, Indeterminate [facility] QC Media Lot # [id number] [facility] Lot# Expiration Date [facility] Swab 05/27/2025 9:29 AM EST us Brayden Damon MD POINT OF CARE TEST ENTER/EDIT OR DERABLES Final Result Performing Organization Address [facility]/ZIP Co de Phone Number [facility] [address] [place] [phone] * Influenza A (ID NOW Rapid Molecular) (05/27/2025 9:29 AM EST) [facility] Influenza A Negative Negative, Indeterminate [facility] QC Media Lot # [id number] [facility] Lot# Expiration Date [facility] Swab 05/27/2025 9:29 AM EST us Brayden Damon MD POINT OF CARE TEST ENTER/EDIT OR DERABLES Final Result Performing Organization Address [facility] Co de Phone Number [facility] [address] [place] [phone] * POCT ID NOW Rapid Strep A manually resulted (05/27/2025 9:29 AM EST) [facility] Rapid Strep A Screen Negative Negative, None Detected QC Media Lot # [id number] Lot# Expiration Date Swab 05/27/2025 9:29 AM EST us Brayden Damon MD POINT OF CARE TEST ENTER/EDIT OR DERABLES Final Result * POCT Rapid COVID Ag (05/27/2025 9:29 AM EST) [facility] Rapid COVID Ag Negative QC Media Lot # [id number] Lot# Expiration Date ,[id number] Swab 05/27/2025 9:29 AM EST us Brayden Damon MD POINT OF CARE TEST ENTER/EDIT OR DERABLES Final Result * POCT , urine manually resulted (05/27/2025 9:29 AM EST) Preg Test, Ur Negative Negative, Indeterminate, None Detected, Trace, 3+, Specimen unsatisfactory for evaluation, Weakly Positive, 1+, 2+ QC Media Lot # [id number] Lot# Expiration Date [id number] Urine 05/27/2025 9:29 AM EST us Brayden Damon MD POINT OF CARE TEST ENTER/EDIT OR DERABLES Final Result * (ABNORMAL) POCT urinalysis dipstick manually resulted (CPT 62108) (05/27/2025 9:29 AM EST) Color, UA Yellow [...] Media Lot # [id number] Lot# Expiration Date 9491,026 Urine (Urine, Random) 05/27/2025 9:29 AM EST us Brayden Damon MD POINT OF CARE TEST ENTER/EDIT OR DERABLES Final Result * Hepatitis C Antibody with Reflex to HCV, RNA, Quantitative, Real-Time PCR (12/13/2022 9:14 AM EDT) Hepatitis C Antibody NON-REACT ELLA NON-REACT ELLA [facility] [place] [facility] Index 0.12 <1.00 [facility] [place] [facility] Comment: HCV antibody was non-reactive. There is no laboratory evidence of HCV infection. In most cases, no further action is required. However, if recent HCV exposure is suspected, a test for HCV RNA (test code 20499) is suggested. For additional information please refer to http://[employer] [facility]uckyCal/faq/HTH34a8 (This link is being provided for informational/ educational purposes only.) Blood Venous blood specimen / Unknown 12/13/2022 9:14 AM EDT 12/13/2022 9:15 AM EDT Narrative [facility] - 12/15/2022 3:46 PM EDT FASTING:NO FASTING: NO Rowena Bolden MD LAB BLOOD ORDERAB LES Final Result [facility] [address], [place] [address] [facility] [address] [place] [address] * HIV-1/2 Antigen and Antibodies, Fourth Generation, with Reflexes (12/13/2022 9:14 AM EDT) HIV Antigen/Antibody, 4th Generation NON-REAC TIVE NON-REAC TIVE [facility] [place] [facility] Comment: HIV-1 antigen and HIV-1/HIV-2 antibodies were not detected. There is no laboratory evidence of HIV infection. PLEASE NOTE: This information has been disclosed to you from records whose confidentiality may be protected by state law. If your state requires such protection, then the state law prohibits you from making any further disclosure of the information without the specific written consent of the person to whom it pertains, or as otherwise permitted by law. A general authorization for the release of medical or other information is NOT sufficient for this purpose. For additional information please refer to http://[employer] [facility]ucky[employer]/faq/DPI160 (This link is being provided for informational/ educational purposes only.) The performance of this assay has not been clinically validated in patients less than 2 years old. Blood Venous blood specimen / Unknown 12/13/2022 9:14 AM EDT 12/13/2022 9:15 AM EDT Narrative [facility] - 12/15/2022 3:46 PM EDT FASTING:NO FASTING: NO Rowena Bolden MD LAB BLOOD ORDERAB LES Final Result [facility] [address], [place] [address] [facility] [address] [place] [address] from Last 3 Months or Most Recently Relevant to Health Maintenance Insurance 7 [employer] 1 TRAC[employer]ber Care Teams Hotel Or Motel Manager Relationship Specialty Start Date End Date Name, MD Kirill [address] [place] [address] PCP - General Internal Medicine 10/19/22
--- OUTSIDE RECORDS SUMMARY | 2025-05-27 17:55 | XMS_ITS | Encounter Summary ---
Author Organization [employer] Address [address] [place] [address] Care Team Providers Care Tandem Mill Sticker Name Role Phone Name, Kirill GALLOWAY Primary Care Provider [phone] Encounter Details Date Type Department Care Team (Latest Contact Info) Description 05/27/2025 Travel Social History Tobacco Use Types Packs/Day Years Used Date Smoking Tobacco: Never Smokeless Tobacco: Never Alcohol Use Standard Drinks/Week Comments Not Currently [...] fi le documented as of this encounter Plan of Treatment Upcoming Encounters Date Type Department Care Team ([facility] st Contact Info) Description 09/22/2025 10:00 AM EDT Office Visit [facility] [address] [place] [address] TarkaMattie, OD [address] [place] [address] documented as of this encounter Visit Diagnoses Not on filedocumented in this encounter Additional Health Concerns Assessment Noted Time PHQ-9 Depression Total Score: 1 01/22/20 25 10:04 AM EDT documented as of this encounter Care Teams Tandem Mill Sticker Relationship Specialty Start Date End Date Name, MD Kirill [address] [place] [address] PCP - General Internal Medicine 10/19/22 documented as of this encounter
--- OUTSIDE RECORDS SUMMARY | 2025-05-27 17:55 | XMS_ITS | Encounter Summary ---
Author Organization [employer] Address [address] [facility] [address] [place] [address] Care Team Providers Care Sandwich Wrapper Name Role Phone Name, Kirill GALLOWAY Primary Care Provider [phone] Reason for Visit * Reason Comments Med Refill Encounter Details Date Type Department Care Team ([facility] st Contact Info) Description 04/18/2023 Refill [facility] [address] [place] [address] Rowena Peraza MD [address] [place] [address] Social History Tobacco Use Types Packs/Day Years Used Date Smoking Tobacco: Never Smokeless Tobacco: Never Alcohol Use Standard Drinks/Week Comments Not Currently 0 (1 standard drink = 0.6 oz pur e alcohol) Depression Answer Date Recorded Patient Health Questionnaire-9 Score 0 10/19/2022 Housing Stability Answer Date Recorded What is your housing situation today? I have evaristo lizarraga 04/18/[address] you li ve. Do you have problems with any of the following? None of the above 04/18/2023 Food Insecurity Answer Date Recorded Within the past 12 months, y ou worried that your food would run out before you got money to buy more: Never True 04/18/2023 Within the past 12 months,th e food you bought just didn't last and you didn't have enough money to get more: Never True Transportation Answer Date Recorded In the past 12 months, has l ack of transportation kept you from medical appts, meetings, work or from getting things needed for daily living? No 04/18/2023 Utilities Answer Date Recorded In the past 12 months, has t he electric, gas, oil or water company threatened to shut off services in your home? No 04/18/2023 Depression Answer Date Recorded Patient Health Questionnaire-2 Score 0 10/19/2022 Comments Unknown Sex and Gender Information Value Date Recorded Sex Assigned at Female 05/01/2022 10:39 AM EDT Legal Sex Female 10:39 AM EDT Gender Identity Female 05/01/2022 10:39 AM EDT Sexual Orientation Straight 05/01/2022 10 :39 AM EDT documented as of this encounter Plan of Treatment Upcoming Encounters Date Type Department Care Team (Late st Contact Info) Description 09/22/2025 10:00 AM EDT Office Visit [facility] [address] [place], [place] [phone] Mattie Flores, OD [address] [place] [address] documented as of this encounter Visit Diagnoses Not on filedocumented in this encounter Additional Health Concerns Assessment Noted Time PHQ-9 Depression Total Score: 0 10/20/19 10:35 AM EDT documented as of this encounter Care Teams Sandwich Wrapper Relationship Specialty Start Date End Date Name, MD Kirill [address] [place] [address] PCP - General Internal Medicine 10/19/22 documented as of this encounter
== END 2025-05-27 16:06 | disposition home or self-care (01) ==
LOC: HO.LNP 16:05
PROVIDERS: Visit Provider Emergency Medicine
DX: M54.50 Low back pain, unspecified (principal)
CPT/HCPCS: 87086